=== PATIENT | female | born 1955 | race Caucasian/White ===

== ENCOUNTER 2018-02-16 20:31 | Emergency (ER) | payer OTHER ==
--- NOTE | 2018-02-16 21:15 | EDPHY ---
H & P Stated Complaint: cough, R frontal chest pain, recent air travel. Time Seen by Provider: 02/16/18 21:06 HPI/ROS: CHIEF COMPLAINT: Pleuritic chest pain HISTORY OF PRESENT ILLNESS: Patient is a 62-year-old female whose had upper respiratory infection for the last week. She also flew back from [place] about 1 week ago. 3 days ago she developed a mild dry cough and 2 days ago developed some pleuritic pain in her right anterior rib area. No fevers. No shortness of breath. She called her primary who is concerned about PE. No leg pain or swelling. REVIEW OF SYSTEMS: Constitutional: denies: chills, fever, recent illness, recent injury EENTM: denies: blurred vision, double vision, nose congestion Respiratory: See HPI Cardiac: denies: chest pain, irregular heart rate, lightheadedness, palpitations Gastrointestinal/Abdominal: denies: abdominal pain, diarrhea, nausea, vomiting, blood streaked stools Genitourinary: denies: dysuria, frequency, hematuria, pain Musculoskeletal: denies: joint pain, muscle pain Skin: denies: lesions, rash, jaundice, bruising Neurological: denies: headache, numbness, paresthesia, tingling, dizziness, weakness Hematologic/Lymphatic: denies: blood clots, easy bleeding, easy bruising Immunologic/allergic: denies: HIV/AIDS, transplant EXAM: GENERAL: Well-appearing, well-nourished and in no acute distress. HEAD: Atraumatic, normocephalic. EYES: Pupils equal round and reactive to light, extraocular movements intact, sclera anicteric, conjunctiva are normal. ENT: TMs normal, nares patent, oropharynx clear without exudates. Moist mucous membranes. NECK: Normal range of motion, supple without lymphadenopathy or JVD. LUNGS: Breath sounds clear to auscultation bilaterally and equal. No wheezes rales or rhonchi. HEART: Regular rate and rhythm without murmurs, rubs or gallops. ABDOMEN: Soft, nontender, normoactive bowel sounds. No guarding, no rebound. No masses appreciated. BACK: No CVA tenderness, no spinal tenderness, step-offs or deformities EXTREMITIES: Normal range of motion, no pitting or edema. No clubbing or cyanosis. NEUROLOGICAL: Cranial nerves II through XII grossly intact. Normal speech, normal gait. 5/5 strength, normal movement in all extremities, normal sensation PSYCH: Normal mood, normal affect. SKIN: Warm, dry, normal turgor, no visible rashes or lesions. Source: Patient Exam Limitations: No limitations - Personal History Current Tetanus Diphtheria and Acellular Pertussis (TDAP): Yes - Medical/Surgical History Hx Asthma: No Hx Chronic Respiratory Disease: No Hx Diabetes: No Hx Cardiac Disease: No Hx Renal Disease: No Hx Cirrhosis: No Hx Alcoholism: No Hx HIV/AIDS: No Hx Splenectomy or Spleen Trauma: No Other PMH: Craft's neuroma, hypothyroidism, seasonal allergies - Family History Significant Family History: No pertinent family hx - Social History Smoking Status: Never smoked Alcohol Use: Sober Drug Use: None Constitutional: Initial Vital Signs Temperature (C) 36.9 C 02/16/18 21:08 Heart Rate 87 02/16/18 21:08 Respiratory Rate 16 02/16/18 21:08 Blood Pressure 113/74 02/16/18 21:08 O2 Sat (%) 94 02/16/18 21:08 O2 Delivery Mode Room Air Allergies/Adverse Reactions: erythromycin base Allergy (Verified 02/16/18 21:08) Penicillins Allergy (Verified 02/16/18 21:08) Home Medications: Medication Instructions Recorded [place] 02/16/18 Levothyroxine [Synthroid 75 mcg 02/16/18 (*)] Loratadine [Claritin 10 mg] 02/16/18 Medical Decision Making - Diagnostics EKG Interpretation: An EKG obtained and was read and documented in trace view. Please see trace view for full reading and report. Sinus rhythm, no acute ischemic changes, no signs of right heart strain Imaging Results: Imaging Impressions Chest X-Ray 02/16/18 21:13 Impression: Airways disease. No pneumonia. Imaging: Discussed imaging studies w/ call circuit worker Radiologist ED Course/Re-evaluation: 10:15 p.m. We discussed the test results which are reassuring. I will treat her for bronchitis. I encouraged rest and anti-inflammatories. She declines further treatment and is eager to go home. We discussed indications for returning. Differential Diagnosis: Partial list of the Differential diagnosis considered include but were not limited to; rib sprain, bronchitis, PE, pneumonia, upper respiratory tract infection and although unlikely based on the history and physical exam, I also considered dissection, aneurysm, pneumothorax, contusion. I discussed these differential diagnoses and the plan with the patient as well as the usual and expected course. The patient understands that the diagnosis is provisional and that in medicine we are not always correct and that further workup is often warranted. Usual and customary warnings were given. All of the patient's questions were answered. The patient was instructed to return to the emergency department should the symptoms at all worsen or return, otherwise to followup with the physician as we discussed. - Data Points Laboratory Results: Laboratory Results 02/16/18 21:40 02/16/18 21:40 02/16/18 02/16/18 02/16/18 21:40 21:40 21:40 WBC 6.67 10^3/uL 10^3/uL (3.80-9.50) RBC 4.81 10^6/uL 10^6/uL (4.18-5.33) Hgb 14.4 g/dL g/dL (12.6-16.3) Hct 41.7 % % (38.0-47.0) MCV 86.7 fL fL (81.5-99.8) MCH 29.9 pg pg (27.9-34.1) MCHC 34.5 g/dL g/dL (32.4-36.7) RDW 11.9 % % (11.5-15.2) Plt Count 268 10^3/uL 10^3/uL (150-400) MPV 10.0 fL fL (8.7-11.7) Neut % (Auto) 33.7 % L % (39.3-74.2) Lymph % (Auto) 48.7 % H % (15.0-45.0) [place] % (Auto) 9.0 % % (4.5-13.0) Eos % (Auto) 7.3 % % (0.6-7.6) Baso % (Auto) 1.2 % % (0.3-1.7) Nucleat RBC Rel Count 0.0 % % (0.0-0.2) Absolute Neuts (auto) 2.24 10^3/uL 10^3/uL (1.70-6.50) Absolute Lymphs (auto) 3.25 10^3/uL H 10^3/uL (1.00-3.00) Absolute Monos (auto) 0.60 10^3/uL 10^3/uL (0.30-0.80) Absolute Eos (auto) 0.49 10^3/uL H 10^3/uL (0.03-0.40) Absolute Basos (auto) 0.08 10^3/uL 10^3/uL (0.02-0.10) Absolute Nucleated RBC 0.00 10^3/uL 10^3/uL (0-0.01) Immature Gran % 0.1 % % (0.0-1.1) Immature Gran # 0.01 10^3/uL 10^3/uL (0.00-0.10) PT 12.0 SEC SEC (12.0-15.0) INR 0.89 (0.83-1.16) APTT 34.0 SEC SEC (23.0-38.0) D-Dimer 0.42 ug/mLFEU ug/mLFEU (0.00-0.50) Sodium 133 mEq/L L mEq/L (135-145) Potassium 4.2 mEq/L mEq/L (3.5-5.2) Chloride 98 mEq/L mEq/L (97-110) Carbon Dioxide 24 mEq/l mEq/l (22-31) Anion Gap 11 mEq/L mEq/L (8-16) BUN 12 mg/dL mg/dL (7-23) Creatinine 0.7 mg/dL mg/dL (0.6-1.0) Estimated GFR > 60 Glucose 122 mg/dL H mg/dL (70-100) Calcium 9.5 mg/dL mg/dL (8.5-10.4) Departure - Departure Disposition: Home, Routine, Self-Care Clinical Impression: Acute bronchitis Qualifiers: Bronchitis organism: unspecified organism Qualified Code(s): J20.9 - Acute bronchitis, unspecified Condition: Fair Instructions: Acute Bronchitis (ED) Referrals: Radha Tyler MD [Primary Care Provider] - 2-3 days, call for appt.
[2018-02-16 21:54] LABS: PLATELET COUNT 268 10^3/uL (150-400)
[2018-02-16 22:04] LABS: INR 0.89 (0.83-1.16)
--- NOTE | 2018-02-16 22:07 | CPEKG ---
Heart Rate: 69 RR Interval: 870 P-R Interval: 132 QRSD Interval: 88 QT Interval: 416 QTC Interval: 446 P [place]: 64 QRS [place]: 49 T Wave [place]: 54 EKG Severity - BORDERLINE ECG - EKG Impression: SINUS RHYTHM EKG Impression: PROBABLE LEFT ATRIAL ABNORMALITY Electronically Signed By: Phil Sanders 16-Feb-2018 22:15:51
[2018-02-16 22:30] VITALS: BP 110/65
== END 2018-02-16 22:34 | disposition home or self-care (01) ==
LOC: CED 20:31
DX: J20.9 Acute bronchitis, unspecified (principal)
CPT/HCPCS: 71046-PO; 80048-PO; 85025-PO; 85378-PO; 85610-PO; 85730-PO

== ENCOUNTER → 2018-02-26 | Outpatient (CLI) | payer OTHER | LOC: BRMIMAGING 11:44 | PROVIDERS: ATTEND Nurse Practitioner | DX: R14.0 Abdominal distension (gaseous) (principal); M41.9 Scoliosis, unspecified | CPT/HCPCS: 74018-PO ==

== ENCOUNTER 2018-03-01 14:15 | Emergency (ER) | payer OTHER ==
[2018-03-01] MEDS ORDERED: MAG HYDROX/AL HYDROX/SIMETH 30 ML UDCUP PO ONE (15:35)
[2018-03-01] MEDS ORDERED: HYOSCYAMINE SULFATE 0.125 MG TAB PO ONE (15:35)
[2018-03-01] MEDS ORDERED: LIDOCAINE 2% VISCOUS 15 ML UDCUP PO ONE (15:35)
[2018-03-01] MEDS ORDERED: FAMOTIDINE 20 MG in NS 100 ML IV ONE (15:35)
--- NOTE | 2018-03-01 15:41 | EDPHY ---
H & P Time Seen by Provider: 03/01/18 15:19 HPI/ROS: CHIEF COMPLAINT: Epigastric pain HISTORY OF PRESENT ILLNESS: Patient is a 63-year-old female who presents emergency department with epigastric pain. Patient states that 2 weeks ago she sneezed and then felt a sudden "rip" in her epigastrium. Since that time she has had epigastric discomfort. She also feels as though she has abdominal bloating. She has no nausea or vomiting. She is able to eat and swallow without difficulty. The patient states she was seen in the emergency department on 02/16/2018. The patient states that she recently had traveled and her primary doctor center into the emergency department because of concern for a clot. At that time the patient reports that she had a chest x-ray and was discharged home. Last week she was treated with antibiotics for bronchitis and sinusitis. Patient states her cough and sinus pressure has improved. She has no leg pain or swelling. REVIEW OF SYSTEMS: My complete review of systems is negative except as mentioned in the HPI. Past Medical/Surgical History: Includes hypothyroidism, allergies, Craft's neuroma Past surgical history: Noncontributory Social history: The patient drinks alcohol occasionally. She does not smoke. Smoking Status: Never smoked Physical Exam: Vitals noted GENERAL: Well-appearing, in no acute distress, alert. HEENT: Eyes normal to inspection, normal pharynx, no signs of dehydration. NECK: No thyromegaly, no lymphadenopathy, supple. RESPIRATORY: Clear to auscultation bilaterally, no rales, rhonchi or wheezing. CVS: Regular rate and rhythm, no rubs, murmurs, or gallops. ABDOMEN: Soft, mild epigastric tenderness to palpation with no rebound or guarding. No palpable mass. No obvious distension on exam. No organomegaly. BACK: Normal to inspection, no CVA tenderness. SKIN: Normal color, no rash, warm, dry. No pallor. EXTREMITIES: No pedal edema, no calf tenderness, no Homans sign or cords, no joint swelling. NEURO/PSYCH: Alert and oriented x3, normal mood and affect, normal motor sensory exam. Constitutional: Initial Vital Signs Temperature (C) 36.4 C 03/01/18 14:26 Heart Rate 86 03/01/18 14:26 Respiratory Rate 18 03/01/18 14:26 Blood Pressure 126/80 H 03/01/18 14:26 O2 Sat (%) 93 03/01/18 14:26 O2 Delivery Mode Room Air Allergies/Adverse Reactions: erythromycin base Allergy (Verified 03/01/18 14:26) Penicillins Allergy (Verified 03/01/18 14:26) Home Medications: Medication Instructions Recorded Anthony Lopez 02/16/18 Levothyroxine [Synthroid 75 mcg 02/16/18 (*)] Loratadine [Claritin 10 mg] 02/16/18 Famotidine [Pepcid 20 MG (*)] 20 mg PO BID #10 tab 03/01/18 Medical Decision Making ED Course/Re-evaluation: In the emergency department I discussed possible etiologies with the patient. I answered all her questions. I reviewed the patient's previous visit on 2017. Her D-dimer was negative. Laboratory studies were unremarkable. The patient had a chest x-ray which showed airway disease. Patient was discharged with a diagnosis of bronchitis. Patient saw her outpatient physician and aunt plain film of the abdomen was ordered on 02/26/2018. This was read by Dr. Corrigan showing no acute disease. Patient continues to have discomfort today. Based on her presentation an IV was placed. Laboratory studies were obtained. Patient was given a GI cocktail and Pepcid. Patient will have a CT angiogram of her chest. Her physician was concerned that she could have a clot due to her travel. She was noted to have a negative D-dimer previously but she has ongoing pain. Patient will also have extension of the CT scan through her abdomen. This is due to her ongoing abdominal discomfort and no finding noted on plain film. EKG shows normal sinus rhythm, normal rate, normal axis, normal intervals. There are no ST or T-wave abnormalities. EKG is normal as interpreted by me. On recheck the patient felt better after the GI cocktail. Patient's patient's white count is normal. Patient has a slightly high percentage of neutrophils. Her chemistry panel is notable for low sodium 133. Coags are normal. CT of the chest, abdomen, pelvis: Please refer the dictated report by Dr. Roger. No acute disease noted. No pulmonary embolus. I discussed the results with the patient. I answered all her questions. She is given warnings prior to leaving. She was given a prescription of Pepcid. She will follow up with Gastroenterology. Differential Diagnosis: My differential includes but is not limited to hiatal hernia, GERD, peptic ulcer disease, perforation, hernia disruption, abdominal wall hernia, pneumonia , bronchitis, ACS, acute ID, PE - Data Points Laboratory Results: Laboratory Results 03/01/18 16:33 18 16:33 03/01/18 03/01/18 03/01/18 16:33 16:33 16:33 WBC 7.50 10^3/uL 10^3/uL (3.80-9.50) RBC 4.75 10^6/uL 10^6/uL (4.18-5.33) Hgb 14.1 g/dL g/dL (12.6-16.3) Hct 40.7 % % (38.0-47.0) MCV 85.7 fL fL (81.5-99.8) MCH 29.7 pg pg (27.9-34.1) MCHC 34.6 g/dL g/dL (32.4-36.7) RDW 11.9 % % (11.5-15.2) Plt Count 315 10^3/uL 10^3/uL (150-400) MPV 9.7 fL fL (8.7-11.7) Neut % (Auto) 78.3 % H % (39.3-74.2) Lymph % (Auto) 19.3 % % (15.0-45.0) [place] % (Auto) 1.6 % L % (4.5-13.0) Eos % (Auto) 0.0 % L % (0.6-7.6) Baso % (Auto) 0.3 % % (0.3-1.7) Nucleat RBC Rel Count 0.0 % % (0.0-0.2) Absolute Neuts (auto) 5.87 10^3/uL 10^3/uL (1.70-6.50) Absolute Lymphs (auto) 1.45 10^3/uL 10^3/uL (1.00-3.00) Absolute Monos (auto) 0.12 10^3/uL L 10^3/uL (0.30-0.80) Absolute Eos (auto) 0.00 10^3/uL L 10^3/uL (0.03-0.40) Absolute Basos (auto) 0.02 10^3/uL 10^3/uL (0.02-0.10) Absolute Nucleated RBC 0.00 10^3/uL 10^3/uL (0-0.01) Immature Gran % 0.5 % % (0.0-1.1) Immature Gran # 0.04 10^3/uL 10^3/uL (0.00-0.10) PT 12.3 SEC SEC (12.0-15.0) INR 0.92 (0.83-1.16) APTT 32.4 SEC SEC (23.0-38.0) Sodium 133 mEq/L L mEq/L (135-145) Potassium 4.3 mEq/L mEq/L (3.3-5.0) Chloride 96 mEq/L L mEq/L (97-110) Carbon Dioxide 24 mEq/l mEq/l (22-31) Anion Gap 13 mEq/L mEq/L (8-16) BUN 17 mg/dL mg/dL (7-23) Creatinine 0.7 mg/dL mg/dL (0.6-1.0) Estimated GFR > 60 Glucose 114 mg/dL H mg/dL (70-100) Calcium 9.6 mg/dL mg/dL (8.5-10.4) Total Bilirubin 0.4 mg/dL mg/dL (0.1-1.4) Conjugated Bilirubin 0.3 mg/dL mg/dL (0.0-0.5) Unconjugated Bilirubin 0.1 mg/dL mg/dL (0.0-1.1) AST 32 IU/L IU/L (14-46) ALT 51 IU/L IU/L (9-52) Alkaline Phosphatase 123 IU/L IU/L (38-126) Troponin I < 0.012 ng/mL ng/mL (0.000-0.034) Total Protein 7.9 g/dL g/dL (6.3-8.2) Albumin 4.5 g/dL g/dL (3.5-5.0) Lipase 102 IU/L IU/L (23-300) Medications Given: Discontinued Medications Al Hydroxide/Mg Hydroxide (Maalox Susp) 30 ml PO ONCE ONE Stop: 03/01/18 15:36 Last Admin: 03/01/18 16:03 Dose: 30 ml Hyoscyamine Sulfate (Levsin, Hyomax-Sl) 0.25 mg PO ONCE ONE Stop: 03/01/18 15:36 Last Admin: 03/01/18 16:00 Dose: 0.25 mg Famotidine 20 mg/ Sodium (Chloride) 102 mls @ 408 mls/hr IV EDNOW ONE Stop: 03/01/18 15:49 Last Admin: 03/01/18 16:25 Dose: 102 mls Lidocaine (Lidocaine 2% Viscous) 15 ml PO ONCE ONE Stop: 03/01/18 15:36 Last Admin: 03/01/18 16:03 Dose: 15 ml Departure - Departure Disposition: Home, Routine, Self-Care Clinical Impression: Epigastric pain Condition: Good Instructions: Acute Abdominal Pain (ED) Additional Instructions: Your CT of the chest and abdomen were normal. You need follow-up with your primary care physician as well as Gastroenterology. Take your entire course of Pepcid. Referrals: Radha Tyler MD [Primary Care Provider] - 2-3 days, call for appt. Nick Cedillo MD [Medical Doctor] - 5-7 days, if not improved Prescriptions: Famotidine [Pepcid 20 MG (*)] 20 mg PO BID #10 tab
[2018-03-01] MEDS ORDERED: MAG HYDROX/AL HYDROX/SIMETH 30 ML UDCUP ONE (15:48)
--- NOTE | 2018-03-01 16:14 | CPEKG ---
Heart Rate: 68 RR Interval: 882 P-R Interval: 144 QRSD Interval: 90 QT Interval: 396 QTC Interval: 422 P [place]: 46 QRS [place]: 49 T Wave [place]: 55 EKG Severity - NORMAL ECG - EKG Impression: SINUS RHYTHM Electronically Signed By: Brendan Puri 03-Mar-2018 08:29:25
[2018-03-01] MEDS ORDERED: IOPAMIDOL (ISOVUE 370) 100 ML BTL IV ONE (16:30)
[2018-03-01 16:40] LABS: PLATELET COUNT 315 10^3/uL (150-400)
[2018-03-01 16:50] LABS: INR 0.92 (0.83-1.16); PROTIME(PATIENT) 12.3 SEC (12.0-15.0)
[2018-03-01 19:04] VITALS: BP 124/76
== END 2018-03-01 18:40 | disposition home or self-care (01) ==
LOC: CED 14:15
DX: R10.13 Epigastric pain (principal)
CPT/HCPCS: 71275-PO; 74177-PO; 80048-PO; 80076-PO; 82784-90; 83690-PO; 84484-PO; 85025-PO; 85610-PO; 85730-PO; 96374; Q9967

== ENCOUNTER → 2018-03-08 | Outpatient (CLI) | payer OTHER | LOC: FIMAGING 08:24 | PROVIDERS: ATTEND Nurse Practitioner Family | DX: K44.9 Diaphragmatic hernia without obstruction or gangrene (principal); K21.9 Gastro-esophageal reflux disease without esophagitis; K29.70 Gastritis, unspecified, without bleeding ==